=== PATIENT | male | born 1995 | race African-American/Black ===

== ENCOUNTER 2025-07-18 10:01 | Inpatient (IN) | payer OTHER, MEDICAID ==
[2025-07-18] VITALS (23 sets, daily range): BP systolic 120–132; BP diastolic 76–93; PULSE 88–98; RESP 12–26; TEMP 36.9–37.0296; O2SAT 96–100
[~2025-07-18] VITALS: Ht 175.3 cm; Wt 72.7 kg
[2025-07-18 11:13] LABS: BASOPHILS % 0.2 % (0.0-2.0); EOSINOPHILS % 0.3 % (0.0-5.0); HEMATOCRIT. 25.0 % (42.0-52.0); HEMOGLOBIN. 8.2 g/dL (14.0-18.0); LYMPHOCYTES % 8.3 % (20.0-50.0); MEAN PLATELET VOLUME 9.1 fl (7.4-10.4); MONOCYTES % 3.3 % (2.0-8.0); NEUTROPHILS % 87.9 % (40.0-76.0); PLATELET 230 x1000/uL (130-400); RED BLOOD CELL COUNT 3.33 mill/uL (4.7-6.1); RED CELL DISTRIBUTION WIDTH 18.1 % (11.6-14.6)
[2025-07-18 11:26] LABS: TROPONIN I HIGH SENSITIVITY < 4 ng/L (3.0-53)
[2025-07-18 11:31] LABS: ASPARTATE AMINOTRANSFERASE 15 IU/L (<34); BILIRUBIN DIRECT 0.2 mg/dL (<=3.0); BILIRUBIN TOTAL 0.6 mg/dL (0.1-1.0); PROTEIN TOTAL 5.2 g/dL (6.0-8.3)
[2025-07-18 11:39] LABS: CREATININE 2.2 mg/dL (0.6-1.3); UREA NITROGEN BLOOD 18 mg/dL (9-23)
[2025-07-18] MEDS: CALCIUM GLUCONATE 100MG/ML 10ML VIAL IV NR (12:36)
[2025-07-18] MEDS: ONDANSETRON HCL 4MG/2ML INJ IV ONE (12:56)
[2025-07-18] MEDS ORDERED: IPRATROPIUM/ALBUTEROL 0.5-3(2.5)MG/3ML NEB HHN PRN (13:30)
[2025-07-18] MEDS ORDERED: LORAZEPAM 0.5MG TABLET PO PRN (13:30)
[2025-07-18] MEDS ORDERED: ONDANSETRON HCL 4MG/2ML INJ IV PRN (13:30)
[2025-07-18] MEDS ORDERED: ACETAMINOPHEN 325MG TABLET PO PRN (13:30)
[2025-07-18] MEDS ORDERED: GUAIFENESIN 200MG/10ML SUGAR FREE UDC PO PRN (13:30)
[2025-07-18] MEDS ORDERED: CLONIDINE 0.1MG TABLET PO PRN (13:30)
[2025-07-18] MEDS ORDERED: DOCUSATE SODIUM 100MG CAPSULE PO PRN (13:30)
[2025-07-18] MEDS ORDERED: NICARDIPINE 100 MG in SODIUM CHLORIDE 0.9% 60 ML IV PRN (13:45)
[2025-07-18] MEDS ORDERED: NALOXONE HCL 0.4MG/ML VIAL IV PRN (14:00)
[2025-07-18] MEDS: LEVETIRACETAM 500MG PREMIX 100 ML IV SCH (14:13)
[2025-07-18 14:31] LABS: CLARITY URINE CLEAR (CLEAR); GLUCOSE URINE NEGATIVE (NEGATIVE); KETONES URINE NEGATIVE (NEGATIVE); LEUKOCYTE ESTERASE URINE NEGATIVE (NEGATIVE); NITRITE URINE NEGATIVE (NEGATIVE); OCCULT BLOOD URINE NEGATIVE (NEGATIVE); PH URINE 8.5 (4.5-8.0); PROTEIN URINE 3+ (NEGATIVE); SPECIFIC GRAVITY URINE 1.011 (1.005-1.030); UROBILINOGEN URINE 0.2 E.U./dL (0.2-1.0)
[2025-07-18 14:34] LABS: CREATININE 1.7 mg/dL (0.6-1.3); UREA NITROGEN BLOOD 19 mg/dL (9-23)
[2025-07-18 14:35] LABS: *AMPHETAMINES SCREEN URINE NEGATIVE (NEGATIVE); *BARBITURATES SCREEN URINE NEGATIVE (NEGATIVE); *BENZODIAZEPINES SCREEN URINE NEGATIVE (NEGATIVE); *COCAINE SCREEN URINE NEGATIVE (NEGATIVE); METHADONE URINE SCREEN NEGATIVE (NEGATIVE)
[2025-07-18 14:36] LABS: CANNABINOID URINE SCREEN NEGATIVE (NEGATIVE); ECSTASY MDMA SCREEN URINE NEGATIVE (NEGATIVE); OPIATES URINE SCREEN NEGATIVE (NEGATIVE); PHENCYCLIDINE URINE SCREEN NEGATIVE (NEGATIVE)
[2025-07-18] MEDS: DEXT 5%/LACTATED RINGERS 1,000 ML IV SCH (15:09)
[2025-07-18 15:55] LABS: BG BASE EXCESS -3.7 mmol/L (-2.0-3.0); BG CARBOXYHEMOGLOBIN 0.9 % (0.5-1.5); BG DEOXYHEMOGLOBIN 4.0 % (0.0-5.0); BG FRACTION INSPIRED OXYGEN 21; BG HCO3 ACT 20.3 mmol/L (21.0-28.0); BG METHEMOGLOBIN 0.1 % (0.5-1.5); BG OXYGEN SATURATION 96.0 % (94.0-98.0); BG OXYHEMOGLOBIN 95.0 % (94.0-98.0); BG PCO2 32.6 mmHg (35.0-48.0); BG PH 7.412 (7.350-7.450); BG PO2 84.2 mmHg (83.0-108.0); BG SAMPLE SITE RIGHT RADIAL; BG TOTAL HEMOGLOBIN 9.5 g/dL (13.5-17.5); BG VENT MODE ROOM AIR
[2025-07-18] MEDS: MORPHINE SULFATE 2 MG/ML INJ (NOT FOR IM USE) IV PRN (16:44)
[2025-07-18 16:50] LABS: COLOR URINE STRAW (YELLOW)
[2025-07-18 16:51] LABS: BACTERIA URINE NONE SEEN; MUCUS URINE TRACE /lpf (NONE/TRACE); RBC URINE NONE SEEN /hpf (0-2); SQUAMOUS EPITHELIAL CELL URINE RARE /lpf (RARE/1+); WBC URINE NONE SEEN /hpf (0-2)
[2025-07-18] MEDS: BLOOD SUGAR DIAGNOSTIC STRIP TEST SCH (16:51)
[2025-07-18] MEDS: INSULIN LISPRO 100 UNITS/ML SUBCUT SCH (17:00)
[2025-07-18 17:36] LABS: FOLIC ACID (FOLATE) SERUM 9.72 ng/mL (>5.38); VITAMIN B12 SERUM 510 pg/mL (211-911)
[2025-07-18] MEDS: DEXTROSE 50% WATER 50ML SYRINGE IV PRN (17:45)
[2025-07-18] MEDS ORDERED: INSU100I53 SQ (18:50)
[2025-07-18] MEDS ORDERED: PNEUMOCOCCAL 20-VAL CONJ-DIP CRM 0.5ML IM ONE (20:15)
[2025-07-18] MEDS ORDERED: INFLUENZA VACCINE 05/PF 0.5 ML SYRINGE IM ONE (20:15)
[2025-07-18 23:18] LABS: HEPATITIS C AB NON REACTIVE (Neg) (Negative)
[2025-07-19] VITALS (62 sets, daily range): BP systolic 112–148; BP diastolic 79–99; PULSE 80–107; RESP 12–29; TEMP 36.8–36.9; O2SAT 96–100
[2025-07-19 05:49] LABS: BASOPHILS % 0.4 % (0.0-2.0); EOSINOPHILS % 0.6 % (0.0-5.0); HEMATOCRIT. 22.6 % (42.0-52.0); HEMOGLOBIN. 7.6 g/dL (14.0-18.0); LYMPHOCYTES % 14.1 % (20.0-50.0); MEAN PLATELET VOLUME 8.9 fl (7.4-10.4); MONOCYTES % 5.9 % (2.0-8.0); NEUTROPHILS % 79.0 % (40.0-76.0); PLATELET 210 x1000/uL (130-400); RED BLOOD CELL COUNT 3.03 mill/uL (4.7-6.1); RED CELL DISTRIBUTION WIDTH 18.3 % (11.6-14.6)
[2025-07-19 05:51] LABS: CREATININE 1.7 mg/dL (0.6-1.3); UREA NITROGEN BLOOD 15.0 mg/dL (9-23)
[2025-07-19] MEDS: ACETAMINOPHEN 325MG TABLET PO PRN (08:15)
[2025-07-19] MEDS ORDERED: INSULIN GLARGINE 100 UNITS/ML SUBCUT SCH (10:00)
[2025-07-20] VITALS (10 sets, daily range): BP systolic 116–126; BP diastolic 85–96; PULSE 79–93; RESP 12–22; TEMP 36.7–37.5; O2SAT 95–99
[2025-07-20 05:45] LABS: BASOPHILS % 0.6 % (0.0-2.0); EOSINOPHILS % 1.7 % (0.0-5.0); HEMATOCRIT. 23.5 % (42.0-52.0); HEMOGLOBIN. 7.8 g/dL (14.0-18.0); LYMPHOCYTES % 20.8 % (20.0-50.0); MEAN PLATELET VOLUME 8.7 fl (7.4-10.4); MONOCYTES % 6.9 % (2.0-8.0); NEUTROPHILS % 70.0 % (40.0-76.0); PLATELET 210 x1000/uL (130-400); RED BLOOD CELL COUNT 3.17 mill/uL (4.7-6.1); RED CELL DISTRIBUTION WIDTH 17.8 % (11.6-14.6)
[2025-07-20 05:58] LABS: CREATININE 1.7 mg/dL (0.6-1.3)
[2025-07-20 05:59] LABS: UREA NITROGEN BLOOD 13 mg/dL (9-23)
[2025-07-20] MEDS: INSULIN GLARGINE 100 UNITS/ML SUBCUT SCH (09:37)
[2025-07-20] MEDS ORDERED: KEPP500 PO ×2 (12:13→12:51)
[2025-07-20] MEDS ORDERED: LANTUSUD SUBCUT ×2 (12:13→12:47)
[2025-07-20] MEDS ORDERED: TOPUD PO (12:49)
[2025-07-20] MEDS: INSULIN GLARGINE 100 UNITS/ML SUBCUT NR (13:01)
== END 2025-07-20 15:29 | disposition home or self-care (01) | DRG 83 ==
LOC: ER 10:01 → MICUNO 12:31 → EDBEDREQTM 12:39 → EDBEDREQ 12:39 → EDBEDREQSVC 12:40 → 8EST 07-20 06:21
PROVIDERS: ADMIT Internal Medicine; ATTEND Internal Medicine
DX: S06.5XAA Traumatic subdural hemorrhage with loss of consciousness status unknown, initial encounter (principal); N17.9 Acute kidney failure, unspecified; E10.22 Type 1 diabetes mellitus with diabetic chronic kidney disease; E10.649 Type 1 diabetes mellitus with hypoglycemia without coma; D57.3 Sickle-cell trait; D50.9 Iron deficiency anemia, unspecified; F15.10 Other stimulant abuse, uncomplicated; F32.A Depression, unspecified; N18.9 Chronic kidney disease, unspecified; Z79.4 Long term (current) use of insulin; F17.210 Nicotine dependence, cigarettes, uncomplicated; X58.XXXA Exposure to other specified factors, initial encounter; Y93.89 Activity, other specified; Y92.89 Other specified places as the place of occurrence of the external cause; Y99.8 Other external cause status
CPT/HCPCS: 36415; 36600; 76770; 80048; 80076; 80305; 80320; 81003; 82375; 82607; 82746; 82805; 82962; 83036; 83540; 83550; 83735; 84484; 85025; 86705; 87340; 90686; 90732; 93005; 93970; 99291; J0612; J1815; J1953; J2270; J2405; G0480